=== PATIENT | female | born 1990 | race African-American/Black ===

== ENCOUNTER 2017-12-28 14:12 | Emergency (ER) | payer OTHER ==
[~2017-12-28] VITALS: Ht 165.1 cm; Wt 77.1 kg
[~2017-12-28 14:12] MED LIST: TAMIFLU75 M1 PO
[2017-12-28 14:33] VITALS: BP 115/76
--- NOTE | 2017-12-28 16:31 | ED THROAT/DENTAL COMPLAINT ---
History of Present Illness General Chief Complaint: General Adult Stated Complaint: OBJECT IN BACK OF THROAT Source: patient, family Exam Limitations: no limitations Vital Signs & Intake/Output Vital Signs & Intake/Output Vital Signs Date Time Temp Pulse Resp B/P B/P Pulse O2 O2 Flow FiO2 Mean Ox Delivery Rate 12/28 1433 97.3 81 18 115/76 98 Room Air Allergies Coded Allergies: No Known Allergies (10/22/17) Reconcile Medications Oseltamivir Phosphate (Tamiflu) 75 MG CAPSULE 1 CAP PO BID viral Triage Note: PT TO ER C/C PAIN TO HARD PALATE X 1 DAY. DENIES SORE THROAT. Triage Nurses Notes Reviewed? yes : No Patient currently breastfeeds: No HPI: 27F no PMH earlier had a sensation of something stuck and moving around in the back of her throat. She does not feel it now. She was not eating at the time. She denies pain, dysphagia, odynophagia, sore throat, cough, fever, chills, headache, toothache, or any other symptoms. Past History Travel History Traveled to [place] past 21 day No Medical History Any Pertinent Medical History? see below for history Neurological: NONE EENT: NONE Cardiovascular: NONE Respiratory: NONE Gastrointestinal: NONE Hepatic: NONE Renal: NONE Musculoskeletal: NONE Psychiatric: NONE Endocrine: NONE Surgical History Surgical History: none Psychosocial History What is your primary language B[place]ian Tobacco Use: Current Daily Use Daily Tobacco Use Amount/Type: => 5 Cigarettes daily Family History Hx Contributory? No Review of Systems Review of Systems Constitutional: Reports: no symptoms. EENTM: Reports: no symptoms. Respiratory: Reports: no symptoms. Cardiovascular: Reports: no symptoms. GI: Reports: no symptoms. Genitourinary: Reports: no symptoms. Musculoskeletal: Reports: no symptoms. Skin: Reports: no symptoms. Neurological/Psychological: Reports: no symptoms. Hematologic/Endocrine: Reports: no symptoms. Immunologic/Allergic: Reports: no symptoms. All Other Systems: Reviewed and Negative Physical Exam Physical Exam General Appearance: well developed/nourished, no apparent distress Head: atraumatic, normal appearance Eyes: Bilateral: normal appearance. Nose: normal inspection Mouth/Throat: normal mouth inspection, pharynx normal, normal dentition, normal hard and soft palate Neck: normal inspection, supple, full range of motion Cardiovascular/Respiratory: normal breath sounds, normal peripheral pulses, regular rate/rhythm Back: normal inspection, normal range of motion Neurologic/Psych: awake, alert, oriented x 3, normal mood/affect Skin: intact, normal color, warm/dry Core Measures ACS in differential dx? No Sepsis Present: No Sepsis Focused Exam Completed? No Progress Differential Diagnosis: aspirated tooth, carious tooth, epiglottitis, Ludwigs angina, meningitis, odontogenic abscess, tyler-tonsillar abscess, pharyngeal for. body, stomatitis/gingivitis, strep pharyngitis, tooth fracture Plan of Care: Normal exam, asymptomatic. Will discharge home. Departure Departure Disposition: HOME OR SELF CARE Condition: Stable Clinical Impression Primary Impression: Tonsil stone Referrals: Danya Kearney APRN (PCP/Family) Additional Instructions: Follow up with your PCP. Drink plenty of water. Gargle with salt water. Return to ER if new or worsening symptoms. Departure Forms: Customer Survey General Discharge Information
== END 2017-12-28 16:38 ==
LOC: ERH 14:12
DX: J35.8 Other chronic diseases of tonsils and adenoids (principal); F17.210 Nicotine dependence, cigarettes, uncomplicated